=== PATIENT | female | born 1955 | race Two or more races ===

== ENCOUNTER → 2016-10-14 | Outpatient (CLI) | payer BC, MEDICAID ==
--- NOTE | 2016-10-16 11:21 | RADRPT ---
PROCEDURE: XR left femur. CLINICAL INDICATION: Knee pain. TECHNIQUE: AP and lateral views of the distal left femur are available for review. COMPARISON: No comparison available FINDINGS: There is a locking femoral intramedullary maria m transfixing a healing mid femoral fracture. There is a total knee replacement. There is no evidence of loosening of the prosthesis. The osseous structures are otherwise normal in mineralization, architecture and alignment no dislocation is iden tified .No osseous lesions are identified. The soft tissues are unremarkable . IMPRESSION: Left femoral locking intramedullary maria m transfixing a healing mid femoral shaft fracture. Unremarkable total knee replacement. RPTAT: HGDB .Darnell Jim MD, MD Date Time Electronically viewed and signed by .Darnell Jim MD, on 10/16/2016 11:21 .B/
--- NOTE | 2016-10-16 11:26 | RADRPT ---
PROCEDURE: XR pelvis/left hip. CLINICAL INDICATION: Hip pain TECHNIQUE: AP pelvis/AP and lateral left hip views available for review. COMPARISON: None available FINDINGS: There is normal mineralization. There are bilateral fixations of healed proximal femoral shaft frac tures with locking cephalomedullary screws. No acute fractures are identified. No osseous lesions are identified. There is mild bilateral hip osteoarthrosis. The soft tissues are unremarkable. IMPRESSION: Bilateral fixations of healed proximal femoral shaft fractures with locking cephalomedullary screws Mild bilateral hip osteoarthrosis RPTAT: HGDB .Darnell Jim MD, Date Time Electronically viewed and signed by .Darnell Jim MD, on 10/16/2016 11:26 .B/
== END | disposition home or self-care (01) ==
LOC: HKI 15:31
PROVIDERS: ATTEND Orthopaedic Surgery
DX: M70.62 Trochanteric bursitis, left hip (principal); Y93.9 Activity, unspecified; G89.4 Chronic pain syndrome; M08.00 Unspecified juvenile rheumatoid arthritis of unspecified site; Z96.653 Presence of artificial knee joint, bilateral; Z87.81 Personal history of (healed) traumatic fracture
CPT/HCPCS: 73502; 73552; Z7500; G0463

== ENCOUNTER → 2017-01-27 | Outpatient (CLI) | payer BC | END | disposition home or self-care (01) | LOC: HKI 14:49 | PROVIDERS: ATTEND Orthopaedic Surgery | DX: M70.62 Trochanteric bursitis, left hip (principal); I10 Essential (primary) hypertension; M06.9 Rheumatoid arthritis, unspecified; Z96.653 Presence of artificial knee joint, bilateral; S72.322D Displaced transverse fracture of shaft of left femur, subsequent encounter for closed fracture with routine healing; S72.321D Displaced transverse fracture of shaft of right femur, subsequent encounter for closed fracture with routine healing; X58.XXXD Exposure to other specified factors, subsequent encounter | CPT/HCPCS: 20610; J1030; Z7610 ==

== ENCOUNTER 2017-03-09 15:07 | Day surgery (SDC) | payer BC ==
[~2017-03-09] VITALS: Ht 157.5 cm; Wt 62.4 kg
[2017-03-09 15:58] VITALS: Ht 157.5 cm; Wt 62.4 kg
[2017-03-09] MEDS ORDERED: HYDR-906 PO (16:14)
[2017-03-09] MEDS ORDERED: PROC5TAB PO (16:14)
[2017-03-09] MEDS ORDERED: AMLO5TAB4 PO (16:14)
[2017-03-09] MEDS ORDERED: PANT40TA4 PO (16:14)
[2017-03-09] MEDS ORDERED: BUPR-75 PO (16:14)
[2017-03-09] MEDS ORDERED: PRED10TA PO (16:14)
[2017-03-09] MEDS ORDERED: RANI150T9 PO (16:14)
[2017-03-09 17:01] VITALS: BP 178/79; PULSE 79; RESP 20
[2017-03-09] MEDS ORDERED: PROPOFOL 40 ML ONE (17:12)
--- NOTE | 2017-03-09 18:04 | GILP ---
DATE OF PROCEDURE: NAME OF PROCEDURE: 1. Esophagogastroduodenoscopy and biopsy. 2. Colonoscopy. SURGEON: Felice Sykes MD PREOPERATIVE DIAGNOSES: 1. Abdominal pain. 2. Chronic heartburn. 3. Change in the bowel habit. POSTOPERATIVE DIAGNOSES: 1. Hiatal hernia. 2. Gastroesophageal reflux disease. 3. Gastritis with erosions. 4. Gastric mucosal biopsies were taken for Helicobacter pylori test. 5. Colonoscopy all the way to the cecum. 6. Occasional diverticulosis of the colon. 7. Internal hemorrhoids. 8. No colon neoplasm was identified. PLAN: 1. Continue pantoprazole, Zantac and MiraLax. 2. Await histopathology report. 3. Next screening colonoscopy in 10 years. Dictated By: FELICE HAWKINS/GASTON Conf#: [id number] DID#: [id number]
[2017-03-09 18:09] VITALS: BP 169/77; PULSE 76; RESP 14
== END 2017-03-09 18:35 | disposition home or self-care (01) ==
LOC: GIL 15:07
PROVIDERS: ATTEND Internal Medicine Gastroenterology
DX: K29.30 Chronic superficial gastritis without bleeding (principal); K44.9 Diaphragmatic hernia without obstruction or gangrene; K21.9 Gastro-esophageal reflux disease without esophagitis; K29.60 Other gastritis without bleeding; K57.90 Diverticulosis of intestine, part unspecified, without perforation or abscess without bleeding; K64.8 Other hemorrhoids; I10 Essential (primary) hypertension; E78.5 Hyperlipidemia, unspecified; M06.9 Rheumatoid arthritis, unspecified
CPT/HCPCS: 43239; 45378; 88305; 88312; Z7610

== ENCOUNTER 2017-04-18 07:12 | Day surgery (SDC) | payer BC ==
[2017-04-18] VITALS (10 sets, daily range): BP systolic 130–146; BP diastolic 70–86; PULSE 82–88; RESP 14–18; Ht 157.5 cm; Wt 61.0 kg
[~2017-04-18] VITALS: Ht 157.5 cm; Wt 61.0 kg
--- NOTE | 2017-04-18 04:08 | PREOPHP ---
DATE OF ADMISSION: 04/18/2017 HISTORY OF PRESENT ILLNESS: This 62-year-old patient is admitted for elective cataract surgery of the right eye. The patient has had progressive decrease in vision over the last 9 months, without prior history of eye disease or injury. The patient does have a history of juvenile rheumatoid arthritis, hypothyroid, and systemic hypertension, and the patient has previously undergone Lasik surgery in both eyes 20 years ago. MEDICATIONS: The patient's current medication includes prednisone, Norvasc, [place], Humira Pen, Prilosec, Wellbutrin, lorazepam, methotrexate, levothyroxine, Fosamax, tramadol. ALLERGIES: THE PATIENT IS ALLERGIC TO ASPIRIN. PHYSICAL EXAMINATION: On examination, visual acuity best corrected is 20/70 -2 in each eye. Slit lamp examination reveals nuclear sclerotic and posterior subcapsular cataract changes in both eyes. Applanation tonometry is 13 mmHg. Examination of the retina is within normal limits. IMPRESSION: Cataract, right eye. PLAN: Cataract extraction with lens implant, right eye. The risks and alternatives to the surgery have been discussed with the patient, as well as the hope for improvement of visual acuity leading to greater ability to perform activities of daily living. The patient understands and consents to proceed with surgery. Dictated By: Gabriel Jordan MD /pedro/deana /Document#: [id number]
[~2017-04-18 07:12] MED LIST: AMLO5TAB4 PO; BUPR-75 PO; CARBACHOL 0.01% 1.5 ML OPH INJ ONE; CEFAZOLIN 1 GM INJ ONE; CIPROFLOXACIN 0.3% 2.5 ML OPH OPER SCH; CYCLOPENTOLATE/PHENYLEPH 2 ML OPH OPER SCH; DEXAMETHASONE 4 MG/ML 1 ML INJ ONE; DICLOFENAC 0.1% 2.5 ML OPH OPER SCH; EPINEPHrine 1 MG INJ ONE; GENTAMICIN 80 MG INJ ONE; HYALURONATE/CHONDROITIN 1ML OPH INJ ONE; HYDR-906 PO; LIDOCAINE 4% (MPF) 5 ML INJ ONE; PANT40TA4 PO; PRED10TA PO; PROC5TAB PO; RANI150T9 PO; TROPICAMIDE 1% 2 ML OPH OPER SCH
[2017-04-18] MEDS ORDERED: LIDO5CRE18 TP (08:07)
[2017-04-18] MEDS ORDERED: TRAM-40 PO (08:07)
[2017-04-18] MEDS ORDERED: DICL100G37 TOP (08:08)
[2017-04-18] MEDS ORDERED: TOFA11TA PO (08:09)
[2017-04-18] MEDS ORDERED: MET25 PO (08:09)
[2017-04-18] MEDS ORDERED: SIME80TA53 PO (08:10)
[2017-04-18] MEDS ORDERED: FAMO-96 PO (08:11)
[2017-04-18] MEDS ORDERED: DOCU100C PO (08:11)
[2017-04-18] MEDS ORDERED: CHLO1CAP56 PO (08:11)
[2017-04-18] MEDS ORDERED: RANI150T9 PO (08:11)
[2017-04-18] MEDS ORDERED: PANT40TA3 PO (08:12)
[2017-04-18] MEDS ORDERED: FOLI-49 PO (08:12)
[2017-04-18] MEDS ORDERED: LEVO50TA74 PO (08:17)
[2017-04-18] MEDS ORDERED: LORA10CA PO (08:17)
[2017-04-18] MEDS ORDERED: BUPR-34 PO (08:18)
[2017-04-18] MEDS ORDERED: OXYB5TAB22 PO (08:19)
[2017-04-18] MEDS ORDERED: ESTR1TAB14 PO (08:19)
[2017-04-18] MEDS ORDERED: CEFAZOLIN 1 GM INJ INJ ONE (09:00)
[2017-04-18] MEDS ORDERED: HYALURONATE/CHONDROITIN 1ML OPH INJ IO ONE (09:00)
[2017-04-18] MEDS ORDERED: CARBACHOL 0.01% 1.5 ML OPH INJ IO ONE (09:00)
[2017-04-18] MEDS ORDERED: DEXAMETHASONE 4 MG/ML 1 ML INJ INJ ONE (09:00)
[2017-04-18] MEDS ORDERED: PROPOFOL 20 ML ONE (09:04)
[2017-04-18] MEDS ORDERED: MIDAZOLAM 1 MG/ML 2 ML INJ ONE (09:20)
[2017-04-18] MEDS ORDERED: ONDANSETRON 4 MG INJ IV PRN (09:30)
[2017-04-18] MEDS ORDERED: FENTAnyl 50 MCG/ML VIAL IV PRN ×2 (09:30)
[2017-04-18] MEDS ORDERED: MIDAZOLAM 1 MG/ML 2 ML INJ IV PRN (09:30)
--- NOTE | 2017-04-18 09:41 | OPR ---
Date/Time of Note Date/Time of Note DATE: 04/18/17 TIME: 09:40 Operative Report Preoperative Diagnosis cataract od Postoperative Diagnosis same Surgeon: LEONELA OSPINA MD Anesthesia: MAC Estimated Blood Loss: none Grafts/Implants posterior chamber lens implant Complications: None LEONELA OSPINA MD Apr 18, 2017 09:41
--- NOTE | 2017-04-18 11:46 | OPR ---
DATE OF OPERATION: 04/18/2017 PREOPERATIVE DIAGNOSIS: Cataract, right eye. POSTOPERATIVE DIAGNOSIS: Cataract, right eye. SURGEON: Dr. Gabriel Jordan. ANESTHESIA: Katie Stovall CRNA DESCRIPTION OF PROCEDURE: SKATE HOP: ANESTHESIA: Local standby. ANESTHESIOLOGIST: OPERATION: Phacoemulsification with posterior chamber intraocular lens implant, right eye. PROCEDURE: The patient was brought to the operating room and placed on the table with an IV in place and the patient attached to an building insulation supervisor. Oxygen was given via face mask. After some intravenous sedation was administered, local anesthesia was given using Xylocaine 2% with epinephrine, mixed with Marcaine 0.5%. This was given in a lid block and retrobulbar injection. The patient was then prepped and draped in the usual sterile manner. A wire lid speculum was inserted between the lids of the right eye. A Superblade was used to enter the anterior chamber at the corneoscleral limbus at the 10:30 o'clock position. A separate incision was made using a 3.0-mm keratome which entered the corneoscleral junction at the 12 o'clock position. Through this 3- mm opening, an irrigating cystotome was introduced into the anterior chamber. The chamber was filled with Viscoat and an anterior capsulotomy was performed. Balanced salt solution was then used for hydrodissection of the lens. A phacoemulsification handpiece was then brought into the field and introduced into the anterior chamber. The lens nucleus was emulsified using a deep groove and cracking the nucleus into quadrants. Following this, each quadrant was aspirated and emulsified at the pupillary margin. At the end of this stage of the procedure, a break was noted in the central posterior capsule and some formed vitreous presented at the lips of the wound. A limited mechanical vitrectomy was performed until no vitreous was present at the wound. After this was completed, the irrigation/aspiration handpiece was brought to the field, introduced into the posterior chamber, and the lens cortical material was removed. When this was completed, additional Viscoat was injected into the anterior and posterior chambers. The 3-mm opening had its internal lips enlarged, and then the posterior chamber intraocular lens measuring 17.0 diopters posterior chamber intraocular lens ([employer] model LI6A0) was then injected into the posterior chamber using the lens injector system. After the leading haptic was introduced into the capsular bag and the lens optic was present in the center of the eye, the injector was removed and the trailing haptic was grasped with non-toothed forceps and introduced into the capsular fold superiorly. A Sinskey hook was then used to rotate the intraocular lens so that the lips were oriented in the horizontal meridian. One 10-0 nylon suture was placed across the wound. Prior to tying, the irrigation/aspiration handpiece was reintroduced into the anterior chamber to remove the Viscoat. Miochol was instilled to constrict the pupil, and then the 10-0 nylon suture was tied. The ends were cut short and then the knot was buried. Then, 0.5 mL of dexamethasone and 0.5 mL of Ancef were injected into the sub-Tenon space in the inferior fornix. Ciloxan drops were then placed on the surface of the eye. The speculum was removed and a patch was applied. The patient then left the operating room in satisfactory condition. Dictated By: Gabriel Jordan MD /pedro/weston /Document#: [id number] STACEY
== END 2017-04-18 10:59 | disposition home or self-care (01) ==
LOC: SDS 07:12
PROVIDERS: ATTEND Ophthalmology
DX: H25.11 Age-related nuclear cataract, right eye (principal); I10 Essential (primary) hypertension
CPT/HCPCS: 66984; J0171; J0690; J1100; J1580; J2250; V2632; Z7512; Z7610

== ENCOUNTER 2017-07-25 08:36 | Day surgery (SDC) | END 2017-07-25 12:15 | disposition home or self-care (01) | DX: H25.12 Age-related nuclear cataract, left eye (principal) | CPT/HCPCS: 66984; 80053; 85025; 85610; 85730; J0690; J1100; J2405; J3010; V2632; Z7512; Z7610 ==

== ENCOUNTER 2018-07-04 15:03 | Emergency (ER) | END 2018-07-04 17:51 | disposition home or self-care (01) ==

== ENCOUNTER 2018-07-12 20:25 | Emergency (ER) | END 2018-07-12 22:11 | disposition home or self-care (01) ==